=== PATIENT | male | born 1970 | race Caucasian/White ===

== ENCOUNTER 2023-07-17 13:48 | Outpatient (CLI) | payer OTHER, SELFPAY ==
--- NOTE | 2023-07-17 14:00 | US_ITS ---
Patient: SARAH PARK Facility:?[facility] Patient ID:?[id number] Site Patient ID:?[id number]. Site :?[id number] Study:?US-Pelvis -07/23/2023 11:56:43 AM Ordering Physician:?GOMEZ MORALEZ Final Report: INDICATION: Left inguinal pain TECHNIQUE: House-scale and color-flow Doppler ultrasound examination of the left groin without and with Valsalva COMPARISON: None. FINDINGS: At the left groin, soft tissue movement is demonstrated with Valsalva, suggesting a hernia. The associated wall defect is not clearly demonstrated. Benign inguinal lymph nodes are noted. IMPRESSION: Findings suspicious for left inguinal hernia. Pelvic CT scan with Valsalva suggested. Dictated by Marbin Manzo MD @ 07/23/2023 4:43:39 PM Signed by:?Marbin Manzo MD @07/23/2023 4:43:39 PM (Electronic Signature)
== END 2023-07-17 13:49 | disposition home or self-care (01) ==
PROVIDERS: PCP Family Medicine; Visit Provider Surgery
DX: R10.9 Unspecified abdominal pain (principal); K40.90 Unilateral inguinal hernia, without obstruction or gangrene, not specified as recurrent
CPT/HCPCS: 76857

== ENCOUNTER 2023-07-24 06:20 | Day surgery (SDC) | payer OTHER, SELFPAY ==
[2023-07-24] VITALS (9 sets, daily range): BP systolic 82–114; BP diastolic 50–91; PULSE 50–69; RESP 13–20; TEMP 36.2–37.1; O2SAT 93–96; BMI 28.8
--- OUTSIDE RECORDS SUMMARY | 2023-07-24 06:22 | XMS_ITS | Clinical Summary ---
Author Name Unknown Organization [facility] Address [address] [place] [id number] Care Team Providers Care Bisque Kiln Drawer Name Role Phone Cristofer Flores MD Primary Care Provider [phone] Allergies No known active allergies Medications No known medications Active Problems Problem Noted Date Diagnosed Date Left nephrolithiasis - 201604/16/2017 Immunizations Name Administration Dates Next Due COVID-19 Bivalent 18+ (Moderna) 01/24/2022 HepB 05/30/2012 Hepatitis A (ADULT 19+) 04/10/2008,12/18/2005 Influenza (IIV3) PF 01/13/2010 Influenza Vaccine 18-64 (Flublok) 03/21/2021 Influenza Vaccine >6 months,quad, PF 01/23/2022 TDAP (Adacel,Boostrix) 05/30/2012 Td (Adult), Adsorbed 12/18/2005 Typhoid IM 05/30/2012,04/10/2008,12/18/2005 Yellow Fever 04/10/2008 Zoster recombinant adjuvanted (SHINGRIX) 023 Family History Medical History Relation Comments Musculoskeletal Disorder Mother sharona CARLSON eased at age 67 from complications Relation Status Comments Brother 1 Alive Brother 2 Alive Father Mother Sister 1 Alive Sister 2 Alive Sister 3 Alive Social History Tobacco Use Types Packs/Day Years Used Date Smoking Tobacco: Never Smokeless Tobacco: Never Tobacco Cessation:Counseling Given: Not Answered Alcohol Use Standard Drinks/Week Comments Yes 0 (1 standard drink = 0.6 oz pur e alcohol) Socially only PHQ-2 Answer Date Recorded PHQ-2 Score 0 04/12/2023 Adolescent Education Answer Date Record ed Getting School Help Needed Not on file 12/08 Interpersonal Safety Answer Date Record ed Do you feel physically and e motionally safe where you currently live? Yes 04/12/2023 Within the past 12 months, h ave you been hit, slapped, kicked or otherwise physically hurt by someone? No 04/12/2023 Within the past 12 months, h ave you been humiliated or emotionally abused in other ways by your partner or ex-partner? No 04/12/2023 Sex and Gender Information Value Date Recorded Sex Assigned at Not on file Gender Identity Not on file Sexual Orientation Not on file Last Filed Vital Signs Vital Sign Reading Time Taken Comments Blood Pressure 102/64 04/12/2023 11:15 AM TRADITIONAL CHINESE HERBALIST Pulse 69 04/12/2023 11:15 AM TRADITIONAL CHINESE HERBALIST Temperature 36.2 ??C (97.1 ??F) 04/12/2023 11:[address] Respiratory Rate 13 10/10/2022 5:07 PM CDT Oxygen Saturation 98% 04/12/2023 11:15 AM TRADITIONAL CHINESE HERBALIST Inhaled Oxygen Concentration - - Weight 99.8 kg (220 lb) 04/12/2023 11:15 AM TRADITIONAL CHINESE HERBALIST Height 188 cm (6' 2) 04/12/2023 11:15 AM TRADITIONAL CHINESE HERBALIST Body Mass Index 28.25 04/12/2023 11:15 AM TRADITIONAL CHINESE HERBALIST Plan of Treatment Upcoming Encounters Date Type Department Care Team (Late st Contact Info) Description 09/27/2023 10:00 AM CDT Office Visit [address] [phone] Laurent Carrillo MD [address] [place] [address] [id number] Health Maintenance Due Date Last Done Comments ADVANCE CARE PLANNING 1969 CT COLONOGRAPHY 1969 FIT 1969 FLEX SIG 1970 GLUCOSE 1969 YEARLY PREVENTIVE VISIT 1969 sDNA (Cologuard) 1969 LIPID 2009 DTAP/TDAP/TD IMMUNIZATION (2 - Td or Tdap) 05/30/2022 05/30/2012, 12/18/2005 ZOSTER IMMUNIZATION (2 of 2) 07/10/2022 05/15/2022 COVID-19 Vaccine ( season) 2022 01/24/2022, 03/14/2021, 08/07/2020, Additional history exists INFLUENZA VACCINE (Season Ended) 2023 01/23/2022, 03/21/2021, 01/13/2010 ANNUAL REVIEW OF HM ORDERS 04/12/2024 04/12/2023, COLONOSCOPY 04/28/2031 04/28/2021 COLORECTAL CANCER SCREENING 04/28/2031 HEPATITIS B IMMUNIZATION Discontinued 05/30/2012 PHQ-2 (once per calendar year) Completed 04/12/2023, 04/11/2022, 09/26/2018 HEPATITIS C SCREENING Discontinued HIV SCREENING Discontinued HPV IMMUNIZATION Aged Out No longer e ligible based on patient's age to complete this topic IPV IMMUNIZATION Aged Out No longer e ligible based on patient's age to complete this topic MENINGITIS IMMUNIZATION Aged Out No l onger eligible based on patient's age to complete this topic Pneumococcal Vaccine: Pediatrics (0 to 5 Years) and At-Risk Patients (6 to 64 Years) Aged Out No longer eligible based on patient's age to complete this topic RSV MONOCLONAL ANTIBODY Aged Out No l onger eligible based on patient's age to complete this topic Medical Devices Implanted Type Area Supply Chain Systems Manager Device Identifier Shelf Expiration Date Model / Serial / Lot Stent Ureteral Dbl Pigtail Inlay [id number] Implanted:Qty: 1 on 04/16/2017 by Phan Anderson MD at [facility] Stent Left: Ureter [employer] 12/26/2021 [id number] / / [id number] Procedures Procedure Name Priority Date/Time Associated Diagnosis Comments COLONOSCOPY - HIM SCAN Routine 04/28/2021 from Last 3 Months or Most Recently Relevant to Health Maintenance Results * Colonoscopy - HIM Scan (04/28/2021) Narrative Nick Butt - 04/28/2021 Ledy Barr CMA ??P Abstract Quality Initiatives Please abstract the following data from this visit with this patient into the appropriate field in Epic: Colonoscopy done on this date: 04/28/2021 (approximately), by this group: [facility], results were normal. Patient Reported PROCEDURES from Last 3 Months or Most Recently Relevant to Health Maintenance Care Teams Bisque Kiln Drawer Relationship Specialty Start Date End Date Cristofer Flores MD PCP - General Family Practice 10/23/17
--- OUTSIDE RECORDS SUMMARY | 2023-07-24 06:22 | XMS_ITS | Referral Summary ---
Author Name Unknown Organization [facility] Address [address] [place] [id number] Care Team Providers Care Special Education Para Professional Name Role Phone Cristofer Flores MD Primary Care Provider [phone] Allergies No known active allergies Medications No known medications Active Problems Problem Noted Date Diagnosed Date Left nephrolithiasis - 2017 04/16/2017 Immunizations Name Administration Dates Next Due COVID-19 Bivalent 18+ (Moderna) 01/24/2022 HepB 05/30/2012 Hepatitis A (ADULT 19+) 04/10/2008,12/18/2005 Influenza (IIV3) PF 01/13/2010 Influenza Vaccine 18-64 (Flublok) 03/21/2021 Influenza Vaccine >6 months,quad, PF 01/23/2022 TDAP (Adacel,Boostrix) 05/30/2012 Td (Adult), Adsorbed 12/18/2005 Typhoid IM 05/30/2012,04/10/2008,12/18/2005 Yellow Fever 04/10/2008 Zoster recombinant adjuvanted (SHINGRIX) 023 Social History Tobacco Use Types Packs/Day Years [...] Comments Blood Pressure 102/64 04/12/2023 11:15 AM AUDIO/VIDEO TECHNICIAN Pulse 69 04/12/2023 11:15 AM AUDIO/VIDEO TECHNICIAN Temperature 36.2 ??C (97.1 ??F) 04/12/2023 11:[address] Respiratory Rate 13 10/10/2022 5:07 PM CDT Oxygen Saturation 98% 04/12/2023 11:15 AM AUDIO/VIDEO TECHNICIAN Inhaled Oxygen Concentration - - Weight 99.8 kg (220 lb) 04/12/2023 11:15 AM AUDIO/VIDEO TECHNICIAN Height 188 cm (6' 2) 04/12/2023 11:15 AM AUDIO/VIDEO TECHNICIAN Body Mass Index 28.25 04/12/2023 11:15 AM AUDIO/VIDEO TECHNICIAN Plan of Treatment Upcoming Encounters Date Type Department Care Team (Late st Contact Info) Description 09/27/2023 10:00 AM CDT Office Visit [address] [phone] Laurent Carrillo MD [address] [place] [address] [phone] Medical Devices Implanted Type Area Size Marker Device Identifier Shelf Expiration Date Model / Serial / Lot Stent Ureteral Dbl Pigtail Inlay [id number] Implanted:Qty: 1 on 04/16/2017 by Phan Anderson MD at [facility] Stent Left: Ureter [employer] 12/26/2021 [id number] / / [id number] Procedures Procedure Name Priority Date/Time Associated Diagnosis [...] this date: 04/28/2021 (approximately), by this group: [facility], results were normal. Patient Reported PROCEDURES from Last 3 Months or Most Recently Relevant to Health Maintenance Care Teams Special Education Para Professional Relationship Specialty Start Date End Date Cristofer Flores MD PCP - General Family Practice 10/23/17
--- OUTSIDE RECORDS SUMMARY | 2023-07-24 06:22 | XMS_ITS | Clinical Summary ---
Author Name Unknown Organization [facility] Address [place], [place] [address] Care Team Providers Care Stage Settings Painter Name Role Phone None, Provided Primary Care Provider Unavailabl e Allergies No known active allergies Medications No known medications Active Problems Problem Noted Date Diagnosed Date TRAVEL CONSULT 12/20/2005 Need for prophylactic vaccin ation with tetanus-diphtheria (Td) 12/20/2005 Need for prophylactic vaccin ation and inoculation against viral hepatitis 12/20/2005 Overview: Hep A #1 Need for prophylactic vaccin ation with typhoid-paratyphoid alone (TAB) 12/20/2005 Immunizations Name Administration Dates Next Due Hepatitis A (Adult) 04/10/2008,12/18/2005 Td (Age >=7 Years) 12/18/2005 Typhoid (injectable) 04/10/2008,12/18/2005 Yellow Fever 04/10/2008 Social History Tobacco Use Types Packs/Day Years Used Date Smoking Tobacco: Never Smokeless Tobacco: Never Alcohol Use Standard Drinks/Week Comments Yes 0 (1 standard drink = 0.6 oz pur e alcohol) occ Sex and Gender Information Value Date Recorded Sex Assigned at Not on file Gender Identity Not on file Sexual Orientation Not on file Obstetrics History Last Filed Vital Signs Vital Sign Reading Time Taken Comments Blood Pressure 122/74 10/27/2011 3:40 PM CDT Pulse 70 10/27/2011 3:40 PM CDT Temperature - - Respiratory Rate - - Oxygen Saturation - - Inhaled Oxygen Concentration - - Weight 99.5 kg (219 lb 6.4 oz) 10/27/2011 3:40 P M CDT Height - - Body Mass Index - - Plan of Treatment Health Maintenance Due Date Last Done Comments Tdap 1980 Depression screening for age 12+ 1981 HIV for age 15-65 1984 BMI (ht and wt on same day) for age 18+ 06/18/1987 Hepatitis C screening for ag e 18-79 06/18/1987 Colonoscopy through age 75 2014 Lipids for age 45-75 2014 Tetanus booster 12/19/2015 12/18/2005 Zoster (shingles) series for age 50+ (1 of 2) 06/18/2019 COVID-19 vaccine series ( - 2022-24 season) 2022 Influenza for age 50-64 11/18/2023 Pneumococcal series for age 6-64 Aged Out No longer eligible based on patient's age to complete this topic Care Teams Stage Settings Painter Relationship Specialty Start Date End Date None, Provided . PCP - General 12/18/05
--- NOTE | 2023-07-24 07:08 | PM.GSPRC ---
Operative Note Date of procedure: 07/24/23 Pre-op diagnosis: 1. Symptomatic left inguinal hernia. Post-op diagnosis: 1. Tiny direct left inguinal hernia and moderately-sized indirect left inguinal hernia. Type of Procedure: 1. Laparoscopic left inguinal hernia repair with mesh. Indications: 53-year-old male with history of open left inguinal hernia repair as an presented for evaluation of left inguinal pain. Patient has been having episodes of left inguinal pain in the same location. He described it as increased sensitivity and discomfort. The pain was worse with prolonged standing and walking. When he was visiting and sight seeing in a different state, he had to take frequent breaks because he developed this painful episode after 2 hours of walking. Sometimes he noticed that eating large amount of food or gassy food contributed to increased pain. He denied similar episodes on the right. On clinical exam patient was found to have a well-healed surgical scar over his left inguinal canal from his previous repair. With the patient standing up and doing Valsalva there was small inguinal bulge palpated. Patient did not have a large easily noticeable bulge in the left inguinal canal but his clinical history was very suggestive of a left inguinal hernia. A pelvic ultrasound was obtained with Valsalva that confirmed presence of a small left inguinal hernia. Given patient's symptoms and his physical exam and ultrasound findings, laparoscopic left inguinal hernia repair was recommended. The procedure was discussed in detail. The risks associated with the procedure including infection, bleeding, hernia recurrence, and nerve pain were all discussed with the patient, and he agreed to proceed. Procedure Description: After discussing the risks and benefits of the procedure, the patient signed informed consent.? The operative site was marked and the patient was brought to the operating room and placed on the operating table in supine position.? Care was taken to pad the patient's pressure points.?? The patient was then intubated by anesthesia.?? The operative site was then prepped and draped in the usual sterile fashion.? A time-out was then performed. Patient had a small pimple suprapubically just to the right of midline. This was covered with Tegaderm. An infraumbilical skin incision was made with a scalpel and subcutaneous tissues were dissected with electrocautery. Anterior sheath was incised with electrocautery and rectus muscle was retracted laterally. A 12 mm spacemaker dissector system was introduced into the incision and advanced over the posterior sheath. Preperitoneal space was dissected with manually insufflating air under direct visualization. Once the tissues were dissected, the balloon was deflated and removed.? A laparoscopic balloon was placed into preperitoneal space and balloon was inflated. Preperitoneal space was insufflated with air. No bleeding was identified upon examination of preperitoneal space. We then placed two 5 mm ports suprapubically under direct visualization. ? The preperitoneal tissues were bluntly dissected with graspers.? The pubic bone was identified and? cleared from preperitoneal tissue.?? Inferior epigastrics on left side were retracted towards the abdominal wall.?? Spermatic cord? was identified and dissected circumferentially.? This was done bluntly. There was a tiny fat containing direct hernia that was reduced bluntly. The indirect hernia sac was identified.?? The indirect hernia sac was dissected bluntly from the spermatic cord and reduced from the left inguinal canal bluntly.??The tip of the left inguinal sac was clipped with 5 mm clip to prevent pneumoperitoneum. When adequate space was developed for mesh placement, a left sided Parietex? mesh was used and positioned around the spermatic cord. The mesh was tacked medially and laterally with?tacks.? Additional local anesthetic was injected directly into pre-peritoneal space. ? The space was deflated under direct visualization and mesh appeared to be still lying in a good position. The ports were then removed. Anterior sheath was then closed with a running 0-0 vicryl suture. Skin was closed with 4-0 monocryl using subcuticular stitch. Steri strips were applied over the laparoscopic?incisions. ? All counts were correct at the end of the case. Patient tolerated the procedure well and was transferred to PACU without any complications. Findings: A tiny direct inguinal hernia containing fat, reduced and a moderately-sized indirect hernia sac reduced from the inguinal canal. Implants: Paroetex mesh Anesthesia: GETA Surgeon: Rossi Almaguer MD Estimated blood loss (mL): 5 Condition: stable Disposition: PACU
[2023-07-24] MEDS: SODIUM CHLORIDE 0.9 % (FLUSH) 10 ML SYRINGE IVF (07:14)
[2023-07-24] MEDS: LACTATED RINGERS 1000 ML 1,000 ML 100 ML IV (07:14)
[2023-07-24] MEDS: CEFAZOLIN 2 GM INJ IVP (07:44)
[2023-07-24] MEDS: BUPIVACAINE 0.25% 30 ML INJECTION (07:58)
--- NOTE | 2023-07-24 08:51 | W.PM.H&PU ---
History & Physical Update History & Physical Update H&P Reviewed and patient assessed: No changes noted
--- NOTE | 2023-07-24 08:55 | W.ANESCHARGE ---
Anesthesia Charges Start Date/Time Anesthesia Start Date: 07/24/23 Anesthesia Start Time: 07:30 Stop Date/Time Anesthesia Stop Date: 07/24/23 Anesthesia Stop Time: 08:53
--- NOTE | 2023-07-24 11:20 | W.ANESCHARGE ---
Anesthesia Charges Start Date/Time Anesthesia Start Date: 07/24/23 Anesthesia Start Time: 07:30 Stop Date/Time Anesthesia Stop Date: 07/24/23 Anesthesia Stop Time: 08:53
== END 2023-07-24 10:15 | disposition home or self-care (01) ==
PROVIDERS: PCP Family Medicine; Visit Provider Surgery
PROC: (CPT 49650; principal; 2023-07-24 07:30)
DX: K40.90 Unilateral inguinal hernia, without obstruction or gangrene, not specified as recurrent (principal)
CPT/HCPCS: 49650; 00840; 00860; C1781; J0665; J0690; J1100; J1170; J1885; J2250; J2405; J2704; J2710; J3010; J7120

== ENCOUNTER 2024-04-21 10:55 | Outpatient (CLI) | payer OTHER, SELFPAY ==
--- NOTE | 2024-04-21 11:15 | CRLHL7_ITS ---
For Patients: As a result of the Cures Act, medical imaging exams and procedure reports are released immediately into your electronic medical record. You may view this report before your referring provider. If you have questions, please contact your health care provider. Indication: Left inguinal pain. No lump/bulge/swelling per patient. H/O left inguinal hernia repair last year. Technique: Grayscale and color Doppler ultrasound of the left inguinal soft tissues performed with and without Valsalva. Comparison: US before surgery 07/17/23 and ABD/PLV CT 02/28/2017 Findings: No fluid collection or mass. No adenopathy or abnormal vascularity. No abscess. No hernia. Impression: No evidence of hernia. Dictated by Christos Rodarte MD @ 04/21/2024 1:17:12 PM (Electronically Signed)
== END 2024-04-21 10:56 | disposition home or self-care (01) ==
LOC: US 10:56
PROVIDERS: PCP Family Medicine; Visit Provider Surgery
DX: R10.32 Left lower quadrant pain (principal); Z98.890 Other specified postprocedural states; Z87.19 Personal history of other diseases of the digestive system
CPT/HCPCS: 76882

== ENCOUNTER 2024-04-24 08:28 | Outpatient (CLI) | payer OTHER, SELFPAY | END 2024-04-24 08:29 | disposition home or self-care (01) | LOC: CT 08:30 | PROVIDERS: PCP Family Medicine; Visit Provider Surgery | DX: R10.32 Left lower quadrant pain (principal); R16.0 Hepatomegaly, not elsewhere classified; K76.0 Fatty (change of) liver, not elsewhere classified; N40.0 Benign prostatic hyperplasia without lower urinary tract symptoms; Z87.19 Personal history of other diseases of the digestive system; Z98.890 Other specified postprocedural states | CPT/HCPCS: 74177; Q9967 ==

== ENCOUNTER 2024-06-25 10:15 | Outpatient (CLI) | payer OTHER, SELFPAY | END 2024-06-25 10:16 | disposition home or self-care (01) | LOC: NFLDUCREF 10:16 | PROVIDERS: PCP Family Medicine; Visit Provider Physician Assistant | DX: R31.9 Hematuria, unspecified (principal) | CPT/HCPCS: 87086 ==

== ENCOUNTER 2024-07-03 13:07 | Outpatient (CLI) | payer OTHER, SELFPAY | END 2024-07-03 13:08 | disposition home or self-care (01) | LOC: LKVREF 13:09 | PROVIDERS: PCP Family Medicine; Visit Provider Family Medicine | DX: Z12.5 Encounter for screening for malignant neoplasm of prostate (principal); R31.0 Gross hematuria | CPT/HCPCS: G0103 ==